=== PATIENT | male | born 1985 | race Caucasian/White ===

== ENCOUNTER 2016-09-14 12:52 | Inpatient (IN) | payer MEDICAID ==
--- NOTE | 2016-09-14 13:11 | ER Document Report ---
ED Medical Screen (RME) - General Stated Complaint: COUGH,CONGESTION,SHORTNESS OF BREATH Time seen by provider: 13:09 Mode of Arrival: Ambulatory Information source: Patient Notes: 31-year-old male presents to ED for shortness of breath and coughing with body aches and weight loss. He went to urgent care and they sent him to the emergency room for his low pulse ox of 91. In RME his pulse ox is 92 and his pulses 148. I have greeted and performed a rapid initial assessment of this patient. A comprehensive ED assessment and evaluation of the patient, analysis of test results and completion of medical decision making process will be conducted by an additional ED providers. - Related Data Allergies/Adverse Reactions: No Known Allergies Allergy (Unverified 09/14/16 13:09)
--- NOTE | 2016-09-14 13:51 | ER Document Report ---
ED Respiratory Problem - General Chief Complaint: Cough Stated Complaint: COUGH,CONGESTION,SHORTNESS OF BREATH Mode of Arrival: Ambulatory Information source: Patient TRAVEL OUTSIDE OF THE [place] IN LAST 30 DAYS: No - HPI Patient complains to provider of: Short of breath Onset: Other - 2 DAYS (ACUTE ILLNESS) Duration: Continuous Quality of pain: Other - SORENESS Severity: Moderate Context: Smoker. denies: Recent cardiac event, Recent foreign travel, Recent immobilization Chest pain/discomfort: Center Cough: Productive Sputum amount: Small Sputum color: [place]. denies: [place] tinged, Red (blood), [place] Sputum consistency: Mucoid Associated symptoms: Chills, Cough, Fever, Headache, Sweaty. denies: Bloody cough - Related Data Allergies/Adverse Reactions: No Known Allergies Allergy (Unverified 09/14/16 13:09) Home Medications: Current Home Medications No Home Medications 09/14/16 [History] Past Medical History - General Information source: Patient - Social History Smoking Status: Current Every Day Smoker Chew tobacco use (# tins/day): No Frequency of alcohol use: None Drug Abuse: None, Other - PREVIOUSLY USED MAIJUANA, NASAL COCAINE. DENIES I.V.DRUG ABUSE. Lives with: Family Family History: None Patient has suicidal ideation: No Patient has homicidal ideation: No - Past Medical History Cardiac Medical History: Reports: None Pulmonary Medical History: Reports: Hx Asthma EENT Medical History: Reports: None Neurological Medical History: Reports: None Endocrine Medical History: Reports: None Renal/ Medical History: Reports: None. Denies: Hx Peritoneal Dialysis Malignancy Medical History: Reports None GI Medical History: Reports: None Musculoskeltal Medical History: Reports None Psychiatric Medical History: Reports: None Past Surgical History: Reports: None Review of Systems - Review of Systems Constitutional: See HPI, Chills, Diaphoresis, Fever, Weight loss - 20% IN 5-6 MONTHS EENT: No symptoms reported Cardiovascular: No symptoms reported Respiratory: See HPI Gastrointestinal: No symptoms reported Genitourinary: No symptoms reported Musculoskeletal: See HPI Skin: No symptoms reported Neurological/Psychological: See HPI, Headaches Physical Exam - Vital signs Vitals: Temp Pulse Resp BP Pulse Ox 99.9 F 143 H 20 132/87 H 93 09/14/16 13:12 09/14/16 13:12 09/14/16 13:12 09/14/16 13:12 09/14/16 13:12 Interpretation: Tachycardic. No: Tachypneic, Febrile - General General appearance: Alert. No: Appears well - APPEARS CHRONICALLY ILL In distress: None - HEENT Head: Normocephalic Eyes: Normal Conjunctiva: Normal Ears: Normal Nasal: Normal Mouth/Lips: Normal Mucous membranes: Dry Pharynx: Normal Neck: Normal - Respiratory Respiratory status: Respiratory distress - SLIGHT Chest status: Nontender Breath sounds: Productive cough, Wheezing - MILD, ALL MCMANUS - Cardiovascular Rhythm: Regular, Tachycardia Heart sounds: Normal auscultation Murmur: No - Abdominal Inspection: Normal Distension: No distension Bowel sounds: Hypoactive - Back Back: Normal - Extremities General upper extremity: Normal inspection General lower extremity: Normal inspection - Neurological Neuro grossly intact: Yes Cognition: Normal Orientation: AAOx4 - Psychological Associated symptoms: Normal affect, Normal mood - Skin Skin Temperature: Warm Skin Moisture: Dry Skin Color: Normal Skin Turgor: Elastic Course - Vital Signs Vital signs: Temp Pulse Resp BP Pulse Ox 97.6 F 88 18 118/76 95 09/16/16 08:50 09/16/16 08:50 09/16/16 08:50 09/16/16 08:50 09/16/16 08:50 - Laboratory Result Diagrams: 09/16/16 03:40 09/16/16 03:40 Laboratory results interpreted by me: 09/14/16 09/14/16 09/14/16 13:41 13:41 13:41 WBC 18.4 H Seg Neutrophils % 82.7 H Lymphocytes % 8.1 L Absolute Neutrophils 15.2 H Absolute Monocytes 1.6 H Iron Total Bilirubin 2.7 H Alkaline Phosphatase 160 H C-Reactive Protein NT-Pro-B Natriuret Pep 335 H Total Protein 8.4 H Albumin 5.2 H Prealbumin TSH 09/14/16 09/14/16 09/14/16 13:41 13:41 13:41 WBC Seg Neutrophils % Lymphocytes % Absolute Neutrophils Absolute Monocytes Iron 23 L Total Bilirubin Alkaline Phosphatase C-Reactive Protein 242.8 H NT-Pro-B Natriuret Pep Total Protein Albumin Prealbumin 8.8 L TSH 09/14/16 13:41 WBC Seg Neutrophils % Lymphocytes % Absolute Neutrophils Absolute Monocytes Iron Total Bilirubin Alkaline Phosphatase C-Reactive Protein NT-Pro-B Natriuret Pep Total Protein Albumin Prealbumin TSH 0.42 L - Diagnostic Test Radiology reviewed: Image reviewed, Reports reviewed - EKG Interpretation by Me EKG shows normal: Sinus rhythm, [place], Intervals, QRS Complexes, ST-T Waves Rate: Tachycardia - Consults DR. ARGUELLES Time consulted: 15:40 Reason for consultation: 09/14/16 15:50 CONSIDER FOR ADMISSION Consulted provider: will come to ER Discharge - Discharge Clinical Impression: Abnormal liver function test, Abnormal weight loss, Acute respiratory failure with hypoxia Condition: Good Disposition: ADMITTED INPATIENT Admitting Provider: Hospitalist Unit Admitted: Telemetry
[2016-09-14 13:56] LABS: ABSOLUTE BASOPHILS # (AUTO) 0.1 10^3/uL (0.0-0.2); ABSOLUTE EOSINOPHILS # (AUTO) 0.1 10^3/uL (0.0-0.6); ABSOLUTE LYMPHOCYTES (AUTO) 1.5 10^3/uL (0.5-4.7); ABSOLUTE MONOCYTES (AUTO) 1.6 10^3/uL (0.1-1.4); ABSOLUTE NEUT (AUTO) 15.2 10^3/uL (1.7-8.2); BASOPHILS % (AUTO) 0.3 % (0-2); EOSINOPHILS % (AUTO) 0.4 % (0-6); HEMATOCRIT 48.4 % (37.9-51.0); HEMOGLOBIN 16.4 g/dL (13.5-17.0); HGB HCT DIFFERENCE 0.8; LYMPHOCYTES % (AUTO) 8.1 % (13-45); MEAN CORPUSCULAR HEMOGLOBIN 29.9 pg (27.0-33.4); MEAN CORPUSCULAR HGB CONC 33.8 g/dL (32.0-36.0); MEAN CORPUSCULAR VOLUME 88 fl (80-97); MONOCYTES % (AUTO) 8.5 % (3-13); RED BLOOD COUNT 5.47 10^6/uL (4.35-5.55); SEGMENTED NEUTROPHILS % (AUTO) 82.7 % (42-78); WHITE BLOOD COUNT 18.4 10^3/uL (4.0-10.5)
[2016-09-14] MEDS ORDERED: NORMAL SALINE 1000 ML 1,000 ML IV ONE ×2 (13:58→15:00)
[2016-09-14 14:19] LABS: ALANINE AMINOTRANSFERASE 28 U/L (21-72); ALBUMIN 5.2 g/dL (3.5-5.0); ALKALINE PHOSPHATASE 160 U/L (38-126); ANION GAP 15 (5-19); ASPARTATE AMINO TRANSFERASE 21 U/L (17-59); BILIRUBIN,TOTAL 2.7 mg/dL (0.2-1.3); BLOOD UREA NITROGEN 8 mg/dL (7-20); CALCIUM 10.2 mg/dL (8.4-10.2); CARBON DIOXIDE 28 mmol/L (22-30); CHLORIDE 99 mmol/L (98-107); CREATINE KINASE 56 U/L (55-170); CREATININE RESULT 0.66 mg/dL (0.52-1.25); GLUCOSE 101 mg/dL (75-110); LIPASE 45.8 U/L (23-300); POTASSIUM 4.2 mmol/L (3.6-5.0); SODIUM 141.9 mmol/L (137-145); TOTAL PROTEIN 8.4 g/dL (6.3-8.2)
[2016-09-14 14:30] LABS: CREATINE KINASE MB 0.33 ng/mL (<4.55)
[2016-09-14 14:33] LABS: TROPONIN I < 0.012 ng/mL
[2016-09-14] MEDS ORDERED: CEFTRIAXONE INJ 1000 MG VIAL IV ONE (15:10)
[2016-09-14] MEDS ORDERED: AZITHROMYCIN INJ 500 MG VIAL IV ONE (15:10)
[2016-09-14] MEDS ORDERED: IPRATROPIUM/ALBUTEROL 0.5-2.5 MG/3 ML AMPUL NEB ONE (15:33)
--- NOTE | 2016-09-14 16:46 | PDOC H&P ---
History of Present Illness Admission Date/PCP: RA NIETO Patient complains of: Cough and shortness of breath History of Present Illness: NINO GRAY is a 31 year old male presents with a one-week history of worsening cough with phlegm and turn from white to hamlin but no blood in it, wheezing, worsening shortness of breath, rapid weight loss of 50 pounds in last 6 months, and bed soaking night sweats, loose stools, sore throat, fevers and chills. He claims a 3 year history of cough productive of phlegm initially presented to his primary care provider in [facility] but was told cough was due to smoking only and he was quit further investigation was performed. He denies living in a alf, any incarcerations, travel overseas or known exposures to tuberculosis or any sick contacts. He denies swollen glands, difficulty urinating, abdominal pain. Denies STDs including HIV and hepatitis, denies IV drug use or recreational drug use, alcohol use. He admits to smoking only 5 cigarettes a day and never more than half a pack per day and has done so since his late teens. He reports strong family history of emphysema and all female members of his family notes they are also heavy smokers. Evaluation in the emergency department shows him to be 91% on room air with a heart rate of 130 chest x-ray showing a bilateral alveolar infiltrates consistent with pneumonia. He was given Rocephin and Zithromax and we were asked to admit for further evaluation and management. He has already received HIV screening was negative. Past Medical History Cardiac Medical History: Reports: None Pulmonary Medical History: Reports: Asthma EENT Medical History: Reports: None Neurological Medical History: Reports: None Endocrine Medical History: Reports: None Renal/ Medical History: Reports: None Malignancy Medical History: Reports: None GI Medical History: Reports: None Musculoskeltal Medical History: Reports: None Psychiatric Medical History: Reports: None, Depression Past Surgical History Past Surgical History: Reports: None Social History Information Source: Patient Lives with: Family Smoking Status: Current Every Day Smoker Frequency of Alcohol Use: None Hx Recreational Drug Use: No Hx Prescription Drug Abuse: No - Advance Directive Resuscitation Status: Full Code Family History Family History: COPD. denies: Malignancy, Thyroid Disfunction Parental Family History Reviewed: Yes Children Family History Reviewed: Yes Sibling(s) Family History Reviewed.: Yes Medication/Allergy Allergies/Adverse Reactions: No Known Allergies Allergy (Unverified 09/14/16 13:09) Review of Systems Constitutional: PRESENT: as per HPI. ABSENT: headache(s), weight gain Eyes: ABSENT: visual disturbances Ears: ABSENT: hearing changes Cardiovascular: PRESENT: dyspnea on exertion. ABSENT: chest pain, edema, orthropnea, palpitations Respiratory: PRESENT: as per HPI. ABSENT: hemoptysis Gastrointestinal: ABSENT: abdominal pain, constipation, hematemesis, hematochezia, nausea, vomiting Genitourinary: ABSENT: dysuria, hematuria Musculoskeletal: ABSENT: joint swelling Integumentary: ABSENT: rash, wounds Neurological: ABSENT: abnormal gait, abnormal speech, confusion, dizziness, focal weakness, syncope Psychiatric: ABSENT: anxiety, depression Endocrine: ABSENT: cold intolerance, heat intolerance, polydipsia, polyuria Hematologic/Lymphatic: ABSENT: easy bleeding, easy bruising Physical Exam Vital Signs: Temp Pulse Resp BP Pulse Ox 99.9 F 143 H 28 H 130/89 H 94 09/14/16 14:38 09/14/16 13:12 09/14/16 15:01 09/14/16 15:00 09/14/16 15:01 Intake & Output 09/13/16 09/14/16 09/15/16 06:59 06:59 06:59 Weight 49.895 kg PHYSICAL EXAM GENERAL: NAD; well developed, thin; alert and oriented to person, place, time, situation HEENT: normocephalic, atraumatic; EOMI, PERRLA, no conjunctival injection, no scleral icterus; oral mucosa dry with a thin white coating on the tongue, normal dentition; neck supple, no LAD, normal ROM RESPIRATORY: no accessory muscle use, no increased WOB, good air entry bilaterally; no wheezes, but diffuse rales, rhonchi and inspiratory crackles CARDIO: no JVD; RRR; no systolic murmur; tachycardia VASCULAR: no carotid bruit; no abdominal bruit; no pallor; 2+ radial, DP pulse ; normal capillary refill GI: soft; nondistended; normal bowel sounds; no hepato but possibly splenomegaly; no rebound, rigidity, guarding : normal external genitalia; rectal deferred NEURO: normal patella reflexes; normal sensation; normal motor function; no gait abnls; no dysarthria; no nystagmus; tongue protrudes midline; normal finger to nose; MSK: 5/5 strength; normal ROM hips; ambulatory without assistance; no tenderness EXTREMITIES: no calf tender; no palpable cords in calf; no clubbing, cyanosis , pedal edema PSYCH: normal affect, normal mood SKIN: warm; moist; no petechiae; no telengectasias; no jaundice; no rash; multiple tattoos LAD: Multiple pea-sized lymph nodes palpable in the right greater than left axilla and bilateral groin, all are mobile and nontender Results Laboratory Results: 09/14/16 13:41 09/14/16 13:41 09/14/16 09/14/16 13:41 13:41 WBC 18.4 H RBC 5.47 Hgb 16.4 Hct 48.4 MCV 88 MCH 29.9 MCHC 33.8 RDW 13.0 Plt Count 271 Seg Neutrophils % 82.7 H Lymphocytes % 8.1 L Monocytes % 8.5 Eosinophils % 0.4 Basophils % 0.3 Absolute Neutrophils 15.2 H Absolute Lymphocytes 1.5 Absolute Monocytes 1.6 H Absolute Eosinophils 0.1 Absolute Basophils 0.1 Sodium 141.9 Potassium 4.2 Chloride 99 Carbon Dioxide 28 Anion Gap 15 BUN 8 Creatinine 0.66 Est GFR ( Amer) > 60 Est GFR (Non-Af Amer) > 60 Glucose 101 Calcium 10.2 Total Bilirubin 2.7 H AST 21 ALT 28 Alkaline Phosphatase 160 H Total Protein 8.4 H Albumin 5.2 H Lipase 45.8 09/14/16 09/14/16 13:41 13:41 Creatine Kinase 56 CK-MB (CK-2) 0.33 Troponin I < 0.012 Impressions: Chest X-Ray 09/14/16 13:12 IMPRESSION: Bilateral perihilar airspace disease as described. Assessment & Plan - Diagnosis (1) Pneumonia Qualifiers: Pneumonia type: due to unspecified organism Laterality: bilateral Lung location: unspecified part of lung Qualified Code(s): J18.9 - Pneumonia, unspecified organism Is this a current diagnosis for this admission?: YesPlan: Admit to telemetry and continue empiric Rocephin and Zithromax started in the emergency department. However his presentation is concerning for tuberculosis given the adenopathy, abnormal weight loss, night sweats. Therefore he will need to be in respiratory isolation, place PPD and collect sputum for AFB testing 3 mornings. Send sputum for culture and sensitivity. Follow up on blood culture sent from the emergency department to hopefully narrow our antibiotic spectrum. Supplemental O2, nebulizer therapy, flutter valve and incentive spirometer. Check mycoplasma antibodies. (2) Acute respiratory failure with hypoxia Is this a current diagnosis for this admission?: YesPlan: Mild and likely secondary to the above. However given his family history and chest x-ray findings will get CT of the chest and check an alpha-1 antitrypsin level. (3) Sepsis Qualifiers: Sepsis type: sepsis due to unspecified organism Qualified Code(s): A41.9 - Sepsis, unspecified organism Is this a current diagnosis for this admission?: YesPlan: IV fluids and antibiotics and supportive care. (4) Abnormal liver function test Is this a current diagnosis for this admission?: YesPlan: Unclear etiology. As above. We'll also screen for hepatitis A, B, and C and EBV, inflammatory disease, autoimmune disease. (5) Abnormal weight loss Is this a current diagnosis for this admission?: YesPlan: As above. Will also screen for hyperthyroidism, immune deficiency, B12, iron, ferritin, pre-albumin (6) Adenopathy Is this a current diagnosis for this admission?: YesPlan: Unclear etiology. As above. Will check CT of the abdomen and pelvis due to the abnormal weight loss and the adenopathy found. (7) Oral thrush Is this a current diagnosis for this admission?: YesPlan: Start topical care with nystatin swish and swallow. Potentially further evidence of immunodeficiency or atypical infectious etiology. - Time Time Spent: Greater than 70 Minutes - Inpatient Certification Medical Necessity: Need For IV Fluids, Need For Continuous Telemetry Monitoring , Need for Nebulizer Therapy and Monitoring of Response, Need for IV Antibiotics
[2016-09-14] MEDS ORDERED: ENOXAPARIN SODIUM INJ 40 MG/0.4 ML DISP.SYRIN SUBCUT ONE (17:00)
[2016-09-14 17:24] LABS: APPEARANCE,URINE CLEAR; BILIRUBIN,URINE NEGATIVE (NEGATIVE); GLUCOSE, URINE NEGATIVE (NEGATIVE); KETONES,URINE TRACE mg/dL (NEGATIVE); LEUKOCYTE ESTERASE,URINE NEGATIVE (NEGATIVE); NITRITE,URINE NEGATIVE (NEGATIVE); PROTEIN,URINE NEGATIVE (NEGATIVE)
[2016-09-14] MEDS ORDERED: TUBERCULIN,PURIF.PROT.DERIV. 5 TU/0.1 ML TEST 1 ML VIAL ID ONE (18:00)
[2016-09-14 18:17] LABS: URINE BARBITURATES SCREEN NEGATIVE; URINE METHADONE SCREEN NEGATIVE; URINE OPIATES LOW NEGATIVE; URINE PHENCYCLIDINE SCREEN NEGATIVE
[2016-09-14] MEDS: NORMAL SALINE 1000 ML 1,000 ML IV PRN (18:30)
[2016-09-14 19:34] LABS: FOLATE 9.66 ng/mL (>2.76)
--- NOTE | 2016-09-14 19:59 | EKG REPORT ---
SEVERITY:- OTHERWISE NORMAL ECG - SINUS TACHYCARDIA : Confirmed by: Jazmyne Quijano MD 14-Sep-2016 19:58:37
[2016-09-14] MEDS: ACETAMINOPHEN 325 MG TABLET PO PRN (21:50)
[2016-09-14] MEDS: IPRATROPIUM/ALBUTEROL 0.5-2.5 MG/3 ML AMPUL NEB PRN (21:50)
[2016-09-14] MEDS: FAMOTIDINE 20 MG TABLET PO SCH (21:50)
[2016-09-14] MEDS ORDERED: INFLUENZA ADLT QUAD (36MOS+) 2016-17 VAC 0.5 ML SYR IM PRN (23:14)
[2016-09-14] MEDS: NYSTATIN/DEXAMETH/DIPHEN SUSP 120 ML PO SCH (23:43)
[2016-09-15 04:41] LABS: ABSOLUTE BASOPHILS # (AUTO) 0.1 10^3/uL (0.0-0.2); ABSOLUTE EOSINOPHILS # (AUTO) 0.2 10^3/uL (0.0-0.6); ABSOLUTE MONOCYTES (AUTO) 1.5 10^3/uL (0.1-1.4); ABSOLUTE NEUT (AUTO) 10.3 10^3/uL (1.7-8.2); BASOPHILS % (AUTO) 0.5 % (0-2); EOSINOPHILS % (AUTO) 1.4 % (0-6); HEMATOCRIT 39.2 % (37.9-51.0); HGB HCT DIFFERENCE 0.4; LYMPHOCYTES % (AUTO) 14.3 % (13-45); MEAN CORPUSCULAR HEMOGLOBIN 29.8 pg (27.0-33.4); MEAN CORPUSCULAR HGB CONC 33.8 g/dL (32.0-36.0); MEAN CORPUSCULAR VOLUME 88 fl (80-97); MONOCYTES % (AUTO) 10.8 % (3-13); RED BLOOD COUNT 4.45 10^6/uL (4.35-5.55); RED CELL DISTRIBUTION WIDTH 12.8 % (11.5-14.0); WHITE BLOOD COUNT 14.1 10^3/uL (4.0-10.5)
[2016-09-15 04:49] LABS: HEMOGLOBIN 13.2 g/dL (13.5-17.0)
[2016-09-15] MEDS: NORMAL SALINE 1000 ML 1,000 ML IV PRN (06:03)
[2016-09-15] MEDS ORDERED: ENOXAPARIN SODIUM INJ 40 MG/0.4 ML DISP.SYRIN SUBCUT SCH (08:00)
[2016-09-15] MEDS: FAMOTIDINE 20 MG TABLET PO SCH ×2 (10:04→21:11)
[2016-09-15] MEDS: CEFTRIAXONE 1 GM/D5W RTU 50 ML IV SCH (10:04)
[2016-09-15] MEDS: AZITHROMYCIN 500 MG in DEXTROSE 5%-WATER 250 ML IV SCH (10:05)
[2016-09-15] MEDS: NYSTATIN/DEXAMETH/DIPHEN SUSP 120 ML PO SCH ×4 (10:06→21:12)
[2016-09-15] MEDS: ENOXAPARIN SODIUM INJ 40 MG/0.4 ML DISP.SYRIN SUBCUT SCH (10:07)
--- NOTE | 2016-09-15 11:14 | PDOC PROGRESS REPORT ---
Subjective Progress Note for:: 09/15/16 Subjective:: NINO GRAY is a 31 year old male presents with a one-week history of worsening cough with phlegm and turn from white to hamlin but no blood in it, wheezing, worsening shortness of breath, rapid weight loss of 50 pounds in last 6 months, and bed soaking night sweats, loose stools, sore throat, fevers and chills. He claims a 3 year history of cough productive of phlegm initially presented to his primary care provider in [facility] but was told cough was due to smoking only and he was quit further investigation was performed. He denies living in a intermediate, any incarcerations, travel overseas or known exposures to tuberculosis or any sick contacts. He denies swollen glands, difficulty urinating, abdominal pain. Denies STDs including HIV and hepatitis, denies IV drug use or recreational drug use, alcohol use. He admits to smoking only 5 cigarettes a day and never more than half a pack per day and has done so since his late teens. He reports strong family history of emphysema and all female members of his family notes they are also heavy smokers. Evaluation in the emergency department shows him to be 91% on room air with a heart rate of 130 chest x-ray showing a bilateral alveolar infiltrates consistent with pneumonia. He was given Rocephin and Zithromax and we were asked to admit for further evaluation and management. He was continued on Rocephin and Zithromax and has shown improvement overnight with resolution of wheezing. PPD was placed last night. One sputum for AFB has been collected however his cough is much less productive this morning became a second sample difficult to collect. He denies chest pain, palpitations , fever, chills, muscle aches and pains, night sweats. ROS: per HPI plus a total of 10 systems reviewed, pertinent positives and negatives noted above, remaining systems negative. Physical Exam Vital Signs: Temp Pulse Resp BP Pulse Ox 97.4 F 113 H 20 105/64 98 09/15/16 07:17 09/15/16 07:34 09/15/16 07:34 09/15/16 07:17 09/15/16 07:34 Pulse Oximeter Continuous Start: 09/14/16 16: 17 Freq: RTQ4 Status: Active Document 09/15/16 07:34 LDA (Rec: 09/15/16 07:35 LDA [email or web address]) Pulse Oximetry Assessment Oxygen Saturation (92-100) 98 Oxygen Flow Rate (L/min) 3 Oxygen Delivery Method Nasal Cannula Equipment Usage Equipment in Use Continuous SpO2 Machine # [id number] Intake & Output 09/14/16 09/15/16 09/16/16 06:59 06:59 06:59 Intake Total 1371 Output Total 400 Balance 971 Weight 51.2 kg EXAM GENERAL: NAD; well developed, poorly nourished; no obese; alert and oriented to person, place, time, situation HEENT: normocephalic, atraumatic; no conjunctival injection, no scleral icterus ; oral mucosa thin white coat on tongue; RESPIRATORY: no accessory muscle use, no increased WOB, good air entry bilaterally; no wheezes, rales, rhonchi; diffuse inspiratory crackles CARDIO: no JVD; RRR; no systolic murmur; no tachycardia GI: soft; nondistended; normal bowel sounds; no hepato spleno megaly; no rebound, rigidity, guarding VASCULAR: no carotid bruit; no abdominal bruit; no pallor; 2+ radial, DP pulse ; normal capillary refill EXTREMITIES: no calf tender; no palpable cords in calf; no clubbing, cyanosis , pedal edema PSYCH: normal affect, normal mood SKIN: warm; moist; no petechiae; no telengectasias; no jaundice; no rash; multiple tattoos LAD: Multiple pea-sized lymph nodes palpable in the right greater than left axilla and bilateral groin, all are mobile and nontender Results Laboratory Results: 09/15/16 03:55 09/14/16 09/15/16 16:30 03:55 WBC 14.1 H RBC 4.45 Hgb 13.2 L D Hct 39.2 MCV 88 MCH 29.8 MCHC 33.8 RDW 12.8 Plt Count 219 Seg Neutrophils % 73.0 Lymphocytes % 14.3 Monocytes % 10.8 Eosinophils % 1.4 Basophils % 0.5 Absolute Neutrophils 10.3 H Absolute Lymphocytes 2.0 Absolute Monocytes 1.5 H Absolute Eosinophils 0.2 Absolute Basophils 0.1 Urine Color YELLOW Urine Appearance CLEAR Urine pH 6.0 Ur Specific [place] 1.010 Urine Protein NEGATIVE Urine Glucose (UA) NEGATIVE Urine Ketones TRACE H Urine Blood NEGATIVE Urine Nitrite NEGATIVE Ur Leukocyte Esterase NEGATIVE Urine WBC (Auto) 1 Urine RBC (Auto) 0 Impressions: Abdomen/Pelvis CT 09/14/16 00:00 IMPRESSION: DIFFUSE BRONCHIECTASIS WITH MILD UPPER LOBE PARASEPTAL EMPHYSEMA. THERE IS A BROAD DIFFERENTIAL INCLUDING ALPHA 1 ANTITRYPSIN DEFICIENCY, ADULT ONSET CYSTIC FIBROSIS, ALLERGIC BRONCHOPULMONARY ASPERGILLOSIS, CHRONIC INFECTION/ INFLAMMATION INCLUDING ASTHMA, AND MIXED CONGESTION ACTIVE TISSUE DISORDERS. CORRELATE WITH PATIENT'S MEDICAL HISTORY. MILD SCATTERED TREE-IN-BUD OPACITIES SUGGESTIVE OF SUPERIMPOSED INFECTIOUS OR INFLAMMATORY PNEUMONITIS. NORMAL CT OF THE ABDOMEN AND PELVIS WITH ORAL AND INTRAVENOUS CONTRAST. Chest CT 09/14/16 00:00 IMPRESSION: DIFFUSE BRONCHIECTASIS WITH MILD UPPER LOBE PARASEPTAL EMPHYSEMA. THERE IS A BROAD DIFFERENTIAL INCLUDING ALPHA 1 ANTITRYPSIN DEFICIENCY, ADULT ONSET CYSTIC FIBROSIS, ALLERGIC BRONCHOPULMONARY ASPERGILLOSIS, CHRONIC INFECTION/ INFLAMMATION INCLUDING ASTHMA, AND MIXED CONGESTION ACTIVE TISSUE DISORDERS. CORRELATE WITH PATIENT'S MEDICAL HISTORY. MILD SCATTERED TREE-IN-BUD OPACITIES SUGGESTIVE OF SUPERIMPOSED INFECTIOUS OR INFLAMMATORY PNEUMONITIS. NORMAL CT OF THE ABDOMEN AND PELVIS WITH ORAL AND INTRAVENOUS CONTRAST. Chest X-Ray 09/14/16 13:12 IMPRESSION: Bilateral perihilar airspace disease as described. Assessment & Plan - Diagnosis (1) Pneumonia Qualifiers: Pneumonia type: due to unspecified organism Laterality: bilateral Lung location: unspecified part of lung Qualified Code(s): J18.9 - Pneumonia, unspecified organism Is this a current diagnosis for this admission?: YesPlan: Admitted to telemetry, continue empiric Rocephin and Zithromax. Improved. However his presentation is concerning for tuberculosis given the adenopathy, abnormal weight loss, night sweats. Therefore he will need to be in respiratory isolation, place PPD and collect sputum for AFB testing 3 mornings. Send sputum for culture and sensitivity. Follow up on blood culture sent from the emergency department to hopefully narrow our antibiotic spectrum. Supplemental O2, nebulizer therapy, flutter valve and incentive spirometer. Follow-up mycoplasma antibodies. (2) Acute respiratory failure with hypoxia Is this a current diagnosis for this admission?: YesPlan: Improved, Mild and likely secondary to the above. However given his family history and chest x-ray findings, CT of the chest performed and shows extensive apical emphysema and diffuse inflammatory changes and alveolar infiltrates consistent with pneumonia. Follow-up Alpha-1 antitrypsin level. (3) Sepsis Qualifiers: Sepsis type: sepsis due to unspecified organism Qualified Code(s): A41.9 - Sepsis, unspecified organism Is this a current diagnosis for this admission?: YesPlan: Improved. IV fluids and antibiotics and supportive care. (4) Abnormal liver function test Is this a current diagnosis for this admission?: YesPlan: Unclear etiology. As above. Pending screen for hepatitis A, B, and C and EBV, inflammatory disease, autoimmune disease. (5) Abnormal weight loss Is this a current diagnosis for this admission?: YesPlan: As above. His TSH is low so Will also screen for hyperthyroidism. Check for immune deficiency; B12, iron, ferritin all unremarkable. Pre-albumin very low. (6) Adenopathy Is this a current diagnosis for this admission?: YesPlan: Unclear etiology. As above. CT of the abdomen and pelvis due to the abnormal weight loss and the adenopathy was unrevealing. (7) Oral thrush Is this a current diagnosis for this admission?: YesPlan: Start topical care with nystatin swish and swallow. Potentially further evidence of immunodeficiency or atypical infectious etiology. - Time Time Spent with patient: 25-34 minutes - Plan Summary Plan Summary: Repeat PPD tomorrow evening, follow-up on AFB smears. Continue respiratory isolation until the results of this test available.
[2016-09-15] MEDS ORDERED: SODIUM CHLORIDE NASAL SPRAY 44 ML ONE (18:15)
[2016-09-15] MEDS: SODIUM CHLORIDE NASAL SPRAY 44 ML NASL SCH (21:12)
[2016-09-16] MEDS: ACETAMINOPHEN 325 MG TABLET PO PRN (00:37)
[2016-09-16 04:57] LABS: ABSOLUTE BASOPHILS # (AUTO) 0.1 10^3/uL (0.0-0.2); ABSOLUTE EOSINOPHILS # (AUTO) 0.2 10^3/uL (0.0-0.6); ABSOLUTE MONOCYTES (AUTO) 1.2 10^3/uL (0.1-1.4); ABSOLUTE NEUT (AUTO) 8.6 10^3/uL (1.7-8.2); BASOPHILS % (AUTO) 0.5 % (0-2); EOSINOPHILS % (AUTO) 1.6 % (0-6); HEMATOCRIT 38.8 % (37.9-51.0); HEMOGLOBIN 13.1 g/dL (13.5-17.0); HGB HCT DIFFERENCE 0.5; LYMPHOCYTES % (AUTO) 16.7 % (13-45); MEAN CORPUSCULAR HGB CONC 33.8 g/dL (32.0-36.0); MEAN CORPUSCULAR VOLUME 89 fl (80-97); RED BLOOD COUNT 4.37 10^6/uL (4.35-5.55); RED CELL DISTRIBUTION WIDTH 12.8 % (11.5-14.0); SEGMENTED NEUTROPHILS % (AUTO) 71.2 % (42-78); WHITE BLOOD COUNT 12.1 10^3/uL (4.0-10.5)
[2016-09-16 05:29] LABS: ALANINE AMINOTRANSFERASE 27 U/L (21-72); ALBUMIN 3.6 g/dL (3.5-5.0); ALKALINE PHOSPHATASE 119 U/L (38-126); ANION GAP 10 (5-19); ASPARTATE AMINO TRANSFERASE 12 U/L (17-59); BLOOD UREA NITROGEN 5 mg/dL (7-20); CALCIUM 8.6 mg/dL (8.4-10.2); CARBON DIOXIDE 29 mmol/L (22-30); CHLORIDE 103 mmol/L (98-107); CREATININE RESULT 0.58 mg/dL (0.52-1.25); GLUCOSE 86 mg/dL (75-110); POTASSIUM 3.9 mmol/L (3.6-5.0); TOTAL PROTEIN 6.2 g/dL (6.3-8.2)
[2016-09-16 05:33] LABS: FREE T3 4.03 pg/mL (2.77-5.27)
[2016-09-16] MEDS: CEFTRIAXONE 1 GM/D5W RTU 50 ML IV SCH (09:00)
[2016-09-16] MEDS: FAMOTIDINE 20 MG TABLET PO SCH ×2 (09:00→22:38)
[2016-09-16] MEDS: NYSTATIN/DEXAMETH/DIPHEN SUSP 120 ML PO SCH ×4 (09:00→22:39)
[2016-09-16] MEDS: SODIUM CHLORIDE NASAL SPRAY 44 ML NASL SCH ×4 (09:00→22:38)
[2016-09-16] MEDS ORDERED: HYDROCODONE BIT/HOMATROPINE SYRUP 5 ML UDCUP PO PRN (09:04)
--- NOTE | 2016-09-16 10:17 | PDOC PROGRESS REPORT ---
Subjective Progress Note for:: 09/16/16 Subjective:: NINO GRAY is a 31 year old male presents with a one-week history of worsening cough with phlegm and turn from white to hamlin but no blood in it, wheezing, worsening shortness of breath, rapid weight loss of 50 pounds in last 6 months, and bed soaking night sweats, loose stools, sore throat, fevers and chills. He claims a 3 year history of cough productive of phlegm initially presented to his primary care provider in [facility] but was told cough was due to smoking only and he was quit further investigation was performed. He denies living in a nursing home, any incarcerations, travel overseas or known exposures to tuberculosis or any sick contacts. He denies swollen glands, difficulty urinating, abdominal pain. Denies STDs including HIV and hepatitis, denies IV drug use or recreational drug use, alcohol use. He admits to smoking only 5 cigarettes a day and never more than half a pack per day and has done so since his late teens. He reports strong family history of emphysema and many female members of his family notes they are also heavy smokers. Evaluation in the emergency department shows him to be 91% on room air with a heart rate of 130 chest x-ray showing a bilateral alveolar infiltrates consistent with pneumonia. He was given Rocephin and Zithromax and we were asked to admit for further evaluation and management. He was continued on Rocephin and Zithromax and has shown improvement with resolution of wheezing. PPD was placed evening of 09/14/2016. 3 sputum for AFB has been collected , first is negative for AFB. his cough is much less productive but much more paroxysmal and irritating. He denies chest pain, palpitations, fever, chills, muscle aches and pains, night sweats. ROS: per HPI plus a total of 10 systems reviewed, pertinent positives and negatives noted above, remaining systems negative. Physical Exam Vital Signs: Temp Pulse Resp BP Pulse Ox 97.6 F 88 18 118/76 95 09/16/16 08:50 09/16/16 08:50 09/16/16 08:50 09/16/16 08:50 09/16/16 08:50 Pulse Oximeter Continuous Start: 09/14/16 16: 17 Freq: RTQ4 Status: Active Document 09/16/16 08:00 [facility] (Rec: 09/16/16 08:55 [facility] [email or web address]) Pulse Oximetry Assessment Oxygen Saturation (92-100) 96 Oxygen Flow Rate (L/min) 3 Oxygen Delivery Method Nasal Cannula Equipment Usage Equipment in Use Continuous SpO2 Machine # [id number] Intake & Output 09/15/16 09/16/16 09/17/16 06:59 06:59 06:59 Intake Total 1371 3229 Output Total 400 1700 Balance 971 1529 Weight 51.2 kg 51.2 kg EXAM GENERAL: NAD; well developed, poorly nourished; no obese; alert and oriented to person, place, time, situation HEENT: normocephalic, atraumatic; no conjunctival injection, no scleral icterus ; oral mucosa thin white coat on tongue resolved; RESPIRATORY: no accessory muscle use, no increased WOB, good air entry bilaterally; no wheezes, rales, rhonchi; bilateral inspiratory crackles at the bases CARDIO: no JVD; RRR; no systolic murmur; no tachycardia GI: soft; nondistended; normal bowel sounds; no hepato spleno megaly; no rebound, rigidity, guarding VASCULAR: no carotid bruit; no abdominal bruit; no pallor; 2+ radial, DP pulse ; normal capillary refill EXTREMITIES: no calf tender; no palpable cords in calf; no clubbing, cyanosis , pedal edema PSYCH: normal affect, normal mood SKIN: warm; moist; no petechiae; no telengectasias; no jaundice; no rash; multiple tattoos LAD: Multiple pea-sized lymph nodes palpable in the right greater than left axilla and bilateral groin, all are mobile and nontender Results Laboratory Results: 09/16/16 03:40 09/16/16 03:40 09/16/16 09/16/16 09/16/16 03:40 03:40 03:40 WBC 12.1 H RBC 4.37 Hgb 13.1 L Hct 38.8 MCV 89 MCH 30.0 MCHC 33.8 RDW 12.8 Plt Count 200 Seg Neutrophils % 71.2 Lymphocytes % 16.7 Monocytes % 10.0 Eosinophils % 1.6 Basophils % 0.5 Absolute Neutrophils 8.6 H Absolute Lymphocytes 2.0 Absolute Monocytes 1.2 Absolute Eosinophils 0.2 Absolute Basophils 0.1 Sodium 142.0 Potassium 3.9 Chloride 103 Carbon Dioxide 29 Anion Gap 10 BUN 5 L Creatinine 0.58 Est GFR ( Amer) > 60 Est GFR (Non-Af Amer) > 60 Glucose 86 Calcium 8.6 Total Bilirubin 1.0 AST 12 L ALT 27 Alkaline Phosphatase 119 C-Reactive Protein 186.0 H Total Protein 6.2 L Albumin 3.6 Free T4 1.20 Free T3 pg/mL 4.03 Impressions: Abdomen/Pelvis CT 09/14/16 00:00 IMPRESSION: DIFFUSE BRONCHIECTASIS WITH MILD UPPER LOBE PARASEPTAL EMPHYSEMA. THERE IS A BROAD DIFFERENTIAL INCLUDING ALPHA 1 ANTITRYPSIN DEFICIENCY, ADULT ONSET CYSTIC FIBROSIS, ALLERGIC BRONCHOPULMONARY ASPERGILLOSIS, CHRONIC INFECTION/ INFLAMMATION INCLUDING ASTHMA, AND MIXED CONGESTION ACTIVE TISSUE DISORDERS. CORRELATE WITH PATIENT'S MEDICAL HISTORY. MILD SCATTERED TREE-IN-BUD OPACITIES SUGGESTIVE OF SUPERIMPOSED INFECTIOUS OR INFLAMMATORY PNEUMONITIS. NORMAL CT OF THE ABDOMEN AND PELVIS WITH ORAL AND INTRAVENOUS CONTRAST. Chest CT 09/14/16 00:00 IMPRESSION: DIFFUSE BRONCHIECTASIS WITH MILD UPPER LOBE PARASEPTAL EMPHYSEMA. THERE IS A BROAD DIFFERENTIAL INCLUDING ALPHA 1 ANTITRYPSIN DEFICIENCY, ADULT ONSET CYSTIC FIBROSIS, ALLERGIC BRONCHOPULMONARY ASPERGILLOSIS, CHRONIC INFECTION/ INFLAMMATION INCLUDING ASTHMA, AND MIXED CONGESTION ACTIVE TISSUE DISORDERS. CORRELATE WITH PATIENT'S MEDICAL HISTORY. MILD SCATTERED TREE-IN-BUD OPACITIES SUGGESTIVE OF SUPERIMPOSED INFECTIOUS OR INFLAMMATORY PNEUMONITIS. NORMAL CT OF THE ABDOMEN AND PELVIS WITH ORAL AND INTRAVENOUS CONTRAST. Chest X-Ray 09/14/16 13:12 IMPRESSION: Bilateral perihilar airspace disease as described. Assessment & Plan - Diagnosis (1) Pneumonia Qualifiers: Pneumonia type: due to unspecified organism Laterality: bilateral Lung location: unspecified part of lung Qualified Code(s): J18.9 - Pneumonia, unspecified organism Is this a current diagnosis for this admission?: YesPlan: Admitted to telemetry, continue empiric Rocephin and Zithromax. Improved. His presentation is concerning for tuberculosis given the adenopathy, abnormal weight loss, night sweats. Therefore he will need to be in respiratory isolation, placed PPD and collect sputum for AFB testing 3 mornings. Send sputum for culture and sensitivity. Follow up on blood culture sent from the emergency department to hopefully narrow our antibiotic spectrum. Supplemental O2, nebulizer therapy, flutter valve and incentive spirometer. Follow-up mycoplasma antibodies. (2) Acute respiratory failure with hypoxia Is this a current diagnosis for this admission?: YesPlan: Improved now greater than or equal to 93% on room air. Mild and likely secondary to the above. However given his family history and chest x-ray findings, CT of the chest performed and shows extensive apical emphysema and diffuse inflammatory changes and alveolar infiltrates consistent with pneumonia. Follow-up Alpha-1 antitrypsin level. (3) Sepsis Qualifiers: Sepsis type: sepsis due to unspecified organism Qualified Code(s): A41.9 - Sepsis, unspecified organism Is this a current diagnosis for this admission?: YesPlan: Resolved. IV fluids and antibiotics and supportive care. (4) Abnormal liver function test Is this a current diagnosis for this admission?: YesPlan: Unclear etiology, improved. As above. Pending screen for hepatitis A, B, and C and EBV, inflammatory disease, autoimmune disease. (5) Abnormal weight loss Is this a current diagnosis for this admission?: YesPlan: As above. His TSH is low but his T3 and T4 are normal. Check for immune deficiency; B12, iron, ferritin all unremarkable. Pre-albumin very low. (6) Adenopathy Is this a current diagnosis for this admission?: YesPlan: Unclear etiology. As above. CT of the abdomen and pelvis due to the abnormal weight loss and the adenopathy was unrevealing. (7) Oral thrush Is this a current diagnosis for this admission?: YesPlan: Improved with topical care with nystatin swish and swallow. Potentially further evidence of immunodeficiency or atypical infectious etiology. - Time Time Spent with patient: 25-34 minutes - Plan Summary Plan Summary: At this point we are hostage to his AFB smears. His PPD can be read this evening. Continue current level of care as he is gradually improving.
[2016-09-16] MEDS: NORMAL SALINE 1000 ML 1,000 ML IV PRN (11:38)
[2016-09-16] MEDS: AZITHROMYCIN 500 MG in DEXTROSE 5%-WATER 250 ML IV SCH (11:39)
[2016-09-16] MEDS: ENOXAPARIN SODIUM INJ 40 MG/0.4 ML DISP.SYRIN SUBCUT SCH (12:08)
[2016-09-16 16:18] LABS: EPSTEIN BARR EARLY AG IGG AB <9.0 U/mL (0.0-8.9)
[2016-09-16] MEDS: HYDROCODONE BIT/HOMATROPINE 5-1.5 MG TABLET PO PRN ×2 (16:47→22:36)
[2016-09-16 17:36] LABS: IMMUNOGLOBULIN A 207 mg/dL (90-386); IMMUNOGLOBULIN G 693 mg/dL (700-1600); IMMUNOGLOBULIN M 91 mg/dL (20-172)
[2016-09-17 04:52] LABS: ABSOLUTE BASOPHILS # (AUTO) 0.1 10^3/uL (0.0-0.2); ABSOLUTE EOSINOPHILS # (AUTO) 0.3 10^3/uL (0.0-0.6); ABSOLUTE LYMPHOCYTES (AUTO) 2.2 10^3/uL (0.5-4.7); ABSOLUTE MONOCYTES (AUTO) 0.9 10^3/uL (0.1-1.4); BASOPHILS % (AUTO) 0.9 % (0-2); EOSINOPHILS % (AUTO) 3.5 % (0-6); HEMATOCRIT 36.8 % (37.9-51.0); HEMOGLOBIN 12.4 g/dL (13.5-17.0); HGB HCT DIFFERENCE 0.4; LYMPHOCYTES % (AUTO) 29.6 % (13-45); MEAN CORPUSCULAR HGB CONC 33.8 g/dL (32.0-36.0); MEAN CORPUSCULAR VOLUME 89 fl (80-97); MONOCYTES % (AUTO) 11.8 % (3-13); RED BLOOD COUNT 4.14 10^6/uL (4.35-5.55); RED CELL DISTRIBUTION WIDTH 12.9 % (11.5-14.0); SEGMENTED NEUTROPHILS % (AUTO) 54.2 % (42-78); WHITE BLOOD COUNT 7.4 10^3/uL (4.0-10.5)
[2016-09-17 07:25] LABS: IMMUNOGLOBULIN E 1255 IU/mL (0-100)
[2016-09-17] MEDS: ENOXAPARIN SODIUM INJ 40 MG/0.4 ML DISP.SYRIN SUBCUT SCH (09:00)
[2016-09-17] MEDS: SODIUM CHLORIDE NASAL SPRAY 44 ML NASL SCH ×2 (09:00→11:09)
[2016-09-17] MEDS: CEFTRIAXONE 1 GM/D5W RTU 50 ML IV SCH (09:11)
[2016-09-17] MEDS: AZITHROMYCIN 500 MG in DEXTROSE 5%-WATER 250 ML IV SCH (09:12)
[2016-09-17] MEDS: FAMOTIDINE 20 MG TABLET PO SCH (09:12)
[2016-09-17] MEDS: NYSTATIN/DEXAMETH/DIPHEN SUSP 120 ML PO SCH ×2 (09:15→13:44)
[2016-09-17] MEDS: IPRATROPIUM/ALBUTEROL 0.5-2.5 MG/3 ML AMPUL NEB PRN (10:16)
[2016-09-17 13:55] VITALS: BP 118/67
[2016-09-17 15:37] LABS: JO-1 ANTIBODY <0.2 AI (0.0-0.9)
--- NOTE | 2016-09-17 16:40 | PDOC DISCHARGE SUMMARY ---
General - Admit/Disc Date/PCP Admission Date/Primary Care Provider: 09/14/16 16:15 RA NIETO Discharge Date: 09/17/16 - Discharge Diagnosis (1) Pneumonia Is this a current diagnosis for this admission?: YesSummary: Secondary to Moraxella catarrhalis. Continue 2 weeks of Zithromax 500 mg daily[address] Follow with [address] Ortiz for further recommendations. (2) Acute respiratory failure with hypoxia Is this a current diagnosis for this admission?: YesSummary: Secondary to the above, complicated by at least moderate COPD. Resolved. (3) Sepsis Is this a current diagnosis for this admission?: YesSummary: Resolved (4) Abnormal liver function test Is this a current diagnosis for this admission?: YesSummary: Resolved. Unclear etiology, however he has EBV titers imply a recent reactivation mononucleosis possibly contributing to many of his presenting symptoms. 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 (6) Adenopathy Is this a current diagnosis for this admission?: YesSummary: Likely secondary to the above. No pathologically sized adenopathy seen on imaging or on physical exam. (7) Oral thrush Is this a current diagnosis for this admission?: YesSummary: Resolved with topical treatment. - Additional Information Resuscitation Status: Full Code Discharge Diet: Regular Discharge Activity: Slowly Increase Activity Home Medications: Acetaminophen [Tylenol 325 mg Tablet] 650 mg PO Q4HP PRN tablet 09/17/16 Albuterol Sulfate [Proair Hfa Inhalation Aerosol 8.5 gm Mdi] 1 puff IH Q4HP PRN #1 mdi 09/17/16 Azithromycin [Zithromax] 500 mg PO DAILY #14 tablet 09/17/16 Flu Vacc [id number] [id number] Up/Pf [Fluzone Adlt Quad [id number] Vac 0.5 ml Syr] 0.5 ml IM .AT DISCHARGE PRN disp.syrin 09/17/16 Hydrocodone Bit/Homatropine [Hycodan 5-1.5 mg Tablet] 1 tab PO QIDP PRN #30 tablet 09/17/16 Ipratropium/Albuterol Sulfate [Combivent Respimat 4 gm Mdi] 1 puff IH Q6 #1 aer.w.adap 09/17/16 Sodium Chloride [[place] Nasal [place] 44 ml Bottle] 1 spray NASL ACHS bottle 09/17 History of Present Illness Patient complains of: Shortness of breath History of Present Illness: NINO GRAY is a 31 year old male presents with a one-week history of worsening cough with phlegm and turn from white to hamlin but no blood in it, wheezing, worsening shortness of breath, rapid weight loss of 50 pounds in last 6 months, and bed soaking night sweats, loose stools, sore throat, fevers and chills. Hospital Course Hospital Course: He claims a 3 year history of cough productive of phlegm initially presented to his primary care provider in [facility] but was told cough was due to smoking only and he was quit further investigation was performed. He denies living in a nursing home, any incarcerations, travel overseas or known exposures to tuberculosis or any sick contacts. He denies swollen glands, difficulty urinating, abdominal pain. Denies STDs including HIV and hepatitis, denies IV drug use or recreational drug use, alcohol use. He admits to smoking only 5 cigarettes a day and never more than half a pack per day and has done so since his late teens. He reports strong family history of emphysema and many female members of his family notes they are also heavy smokers. Evaluation in the emergency department shows him to be 91% on room air with a heart rate of 130 chest x-ray showing a bilateral alveolar infiltrates consistent with pneumonia. He was given Rocephin and Zithromax and we were asked to admit for further evaluation and management. He was continued on Rocephin and Zithromax and has shown improvement with resolution of wheezing. PPD was placed evening of 09/14/2016 and interpreted by this provider as negative, there is no erythema or induration.. 3 sputum for AFB has been collected and first 2 are negative for AFB. his cough is much less productive but much more paroxysmal and irritating. He denies chest pain, palpitations, fever, chills, muscle aches and pains, night sweats. His sputum culture came back for a heavy burden of Moraxella catarrhalis as the likely explanation for his pneumonia. He was changed to only Zithromax 500 mg daily at discharge is instructed to follow-up with Dr. Ortiz, pulmonology in 1-2 weeks. At this time his hemoglobin was stable for discharge home, he is to return to the emergency department for any worsening of his condition. Follow-up with primary care provider of his choice in 2 weeks. Physical Exam Vital Signs: Temp Pulse Resp BP Pulse Ox 97.5 F 112 H 23 H 118/67 92 09/17/16 13:53 09/17/16 13:53 09/17/16 13:53 09/17/16 13:53 09/17/16 13:53 Pulse Oximeter Continuous Start: 09/14/16 16: 17 Freq: RTQ4 Status: Discharge Document 09/17/16 12:33 [facility] (Rec: 09/17/16 12:35 [facility] [email or web address]) Pulse Oximetry Assessment Oxygen Saturation (92-100) 92 Oxygen Delivery Method Room Air Fraction of Inspired Oxygen (FIO2) 21 Equipment Usage Equipment in Use Continuous SpO2 Machine # 11 Intake & Output 09/16/16 09/17/16 09/18/16 06:59 06:59 06:59 Intake Total 3229 3431 Output Total 1700 1150 Balance 1529 2281 Weight 51.2 kg 51.2 kg EXAM GENERAL: NAD; well developed, poorly nourished; no obese; alert and oriented to person, place, time, situation HEENT: normocephalic, atraumatic; no conjunctival injection, no scleral icterus ; oral mucosa thin white coat on tongue resolved; RESPIRATORY: no accessory muscle use, no increased WOB, good air entry bilaterally; no wheezes, rales, rhonchi; bilateral inspiratory crackles at the bases somewhat improved CARDIO: no JVD; RRR; no systolic murmur; no tachycardia GI: soft; nondistended; normal bowel sounds; no hepato spleno megaly; no rebound, rigidity, guarding VASCULAR: no carotid bruit; no abdominal bruit; no pallor; 2+ radial, DP pulse ; normal capillary refill EXTREMITIES: no calf tender; no palpable cords in calf; no clubbing, cyanosis , pedal edema PSYCH: normal affect, normal mood SKIN: warm; moist; no petechiae; no telengectasias; no jaundice; no rash; multiple tattoos LAD: Multiple pea-sized lymph nodes palpable in the right greater than left axilla and bilateral groin, all are mobile and nontender Results Laboratory Results: 09/17/16 03:48 09/16/16 03:40 09/15/16 09/17/16 03:55 03:48 WBC 7.4 RBC 4.14 L Hgb 12.4 L Hct 36.8 L MCV 89 MCH 30.0 MCHC 33.8 RDW 12.9 Plt Count 229 Seg Neutrophils % 54.2 Lymphocytes % 29.6 Monocytes % 11.8 Eosinophils % 3.5 Basophils % 0.9 Absolute Neutrophils 4.0 Absolute Lymphocytes 2.2 Absolute Monocytes 0.9 Absolute Eosinophils 0.3 Absolute Basophils 0.1 Transferrin 161 L 09/14/16 17:30 Sputum AFB Smear Concentration - Final 09/14/16 17:30 Sputum Acid Fast Bacilli Smear - Final 09/14/16 17:30 Sputum Gram Stain - Final 09/14/16 17:30 Sputum Sputum Culture - Final Morax.(Branhamella)Catarrhalis Normal Ariela Impressions: Abdomen/Pelvis CT 09/14/16 00:00 IMPRESSION: DIFFUSE BRONCHIECTASIS WITH MILD UPPER LOBE PARASEPTAL EMPHYSEMA. THERE IS A BROAD DIFFERENTIAL INCLUDING ALPHA 1 ANTITRYPSIN DEFICIENCY, ADULT ONSET CYSTIC FIBROSIS, ALLERGIC BRONCHOPULMONARY ASPERGILLOSIS, CHRONIC INFECTION/ INFLAMMATION INCLUDING ASTHMA, AND MIXED CONGESTION ACTIVE TISSUE DISORDERS. CORRELATE WITH PATIENT'S MEDICAL HISTORY. MILD SCATTERED TREE-IN-BUD OPACITIES SUGGESTIVE OF SUPERIMPOSED INFECTIOUS OR INFLAMMATORY PNEUMONITIS. NORMAL CT OF THE ABDOMEN AND PELVIS WITH ORAL AND INTRAVENOUS CONTRAST. Chest CT 09/14/16 00:00 IMPRESSION: DIFFUSE BRONCHIECTASIS WITH MILD UPPER LOBE PARASEPTAL EMPHYSEMA. THERE IS A BROAD DIFFERENTIAL INCLUDING ALPHA 1 ANTITRYPSIN DEFICIENCY, ADULT ONSET CYSTIC FIBROSIS, ALLERGIC BRONCHOPULMONARY ASPERGILLOSIS, CHRONIC INFECTION/ INFLAMMATION INCLUDING ASTHMA, AND MIXED CONGESTION ACTIVE TISSUE DISORDERS. CORRELATE WITH PATIENT'S MEDICAL HISTORY. MILD SCATTERED TREE-IN-BUD OPACITIES SUGGESTIVE OF SUPERIMPOSED INFECTIOUS OR INFLAMMATORY PNEUMONITIS. NORMAL CT OF THE ABDOMEN AND PELVIS WITH ORAL AND INTRAVENOUS CONTRAST. Chest X-Ray 09/14/16 13:12 IMPRESSION: Bilateral perihilar airspace disease as described. Qualifiers PATEINT BEING DISCHARGED WITH ANY OF THE FOLLOWING DIAGNOSIS?: No Plan Discharge Plan: As above Time Spent: Greater than 30 Minutes
[2016-09-18 08:44] LABS: EBV EARLY AG AB DIFFUSE Negative (Neg:<1:20)
== END 2016-09-17 14:59 | disposition home or self-care (01) | DRG 871 ==
LOC: ER 12:52 → EH 16:15 → 3N 22:40
PROVIDERS: ADMIT Internal Medicine; ATTEND Internal Medicine
PROC: 3E0F73Z Introduction of Anti-inflammatory into Respiratory Tract, Via Natural or Artificial Opening (ICD-10-PCS; 2016-09-15)
PROC: 3E0234Z Introduction of Serum, Toxoid and Vaccine into Muscle, Percutaneous Approach (ICD-10-PCS; principal; 2016-09-17)
DX: A41.9 Sepsis, unspecified organism (principal); J15.9 Unspecified bacterial pneumonia; J96.01 Acute respiratory failure with hypoxia; B37.0 Candidal stomatitis; Z23 Encounter for immunization; F17.210 Nicotine dependence, cigarettes, uncomplicated; J45.909 Unspecified asthma, uncomplicated; R63.4 Abnormal weight loss; R59.9 Enlarged lymph nodes, unspecified; R79.89 Other specified abnormal findings of blood chemistry; Z80.9 Family history of malignant neoplasm, unspecified; R61 Generalized hyperhidrosis; Z82.5 Family history of asthma and other chronic lower respiratory diseases
CPT/HCPCS: 36415; 71020; 71260; 74177; 80053; 80074; 80307; 81001; 82550; 82553; 82607; 82728; 82746; 82784; 82785; 83036; 83540; 83550; 83605; 83690; 83880; 84134; 84439; 84443; 84466; 84481; 84484; 85025; 85045; 86140; 86225; 86235; 86256; 86663; 86664; 86665; 86701; 86738; 87015; 87040; 87070; 87077; 87116; 87205; 87206; 87804; 90686; 93005; 93010; 94667; 94762; 94799; 96361; 96365; 99285; J0456; J0696; J1650; J3490; J7030; J7060; J7620

== ENCOUNTER → 2016-09-25 | Outpatient (CLI) | payer MEDICAID | LOC: OD 13:30 | PROVIDERS: ATTEND Family Medicine | DX: J18.9 Pneumonia, unspecified organism (principal) | CPT/HCPCS: 71020 ==

== ENCOUNTER → 2016-09-26 | Outpatient (CLI) | payer MEDICAID ==
[2016-09-26 16:30] LABS: ABSOLUTE BASOPHILS # (AUTO) 0.1 10^3/uL (0.0-0.2); ABSOLUTE EOSINOPHILS # (AUTO) 0.4 10^3/uL (0.0-0.6); ABSOLUTE LYMPHOCYTES (AUTO) 2.1 10^3/uL (0.5-4.7); ABSOLUTE MONOCYTES (AUTO) 0.6 10^3/uL (0.1-1.4); ABSOLUTE NEUT (AUTO) 4.9 10^3/uL (1.7-8.2); BASOPHILS % (AUTO) 0.8 % (0-2); HEMATOCRIT 42.6 % (37.9-51.0); HEMOGLOBIN 14.9 g/dL (13.5-17.0); HGB HCT DIFFERENCE 2.1; LYMPHOCYTES % (AUTO) 26.4 % (13-45); MEAN CORPUSCULAR HEMOGLOBIN 30.3 pg (27.0-33.4); MEAN CORPUSCULAR VOLUME 87 fl (80-97); RED BLOOD COUNT 4.92 10^6/uL (4.35-5.55); RED CELL DISTRIBUTION WIDTH 12.7 % (11.5-14.0); SEGMENTED NEUTROPHILS % (AUTO) 60.8 % (42-78)
[2016-09-28 08:41] LABS: IMMUNOGLOBULIN A 258 mg/dL (90-386); IMMUNOGLOBULIN G 910 mg/dL (700-1600); IMMUNOGLOBULIN M 143 mg/dL (20-172)
[2016-09-28 12:28] LABS: IMMUNOGLOBULIN E 1431 IU/mL (0-100)
[2016-09-30 06:42] LABS: E001-IGE CAT DANDER <0.10 kU/L (Class 0); E005-IGE DOG DANDER 1.51 kU/L (Class III); G002-IGE BERMUDA GRASS 0.49 kU/L (Class I); G006-IGE TIMOTHY GRASS 0.32 kU/L (Class I); G010-IGE JOHNSON GRASS 0.43 kU/L (Class I); G017-IGE BAHIA GRASS 0.39 kU/L (Class I); I100-IGE COCKROACHAMERICAN 4.07 kU/L (Class IV); M001-IGE PENICILLIUM CHRYSOGEN <0.10 kU/L (Class 0); M002-IGE CLADOSPORIUM HERBARUM <0.10 kU/L (Class 0); M003-IGE ASPERGILLUS FUMIGATUS <0.10 kU/L (Class 0); M004-IGE MUCOR RACEMOSUS 0.12 kU/L (Class 0/I); M005-IGE CANDIDA ALBICANS 0.21 kU/L (Class 0/I); M006-IGE ALTERNARIA ALTERNATA <0.10 kU/L (Class 0); M008-IGE SETOMELANOMMA ROSTRAT <0.10 kU/L (Class 0); M009-IGE FUSARIUM PROLIFERATUM <0.10 kU/L (Class 0); M010-IGE STEMPHYLIUM HERBARUM <0.10 kU/L (Class 0); M013-IGE PHOMA BETAE <0.10 kU/L (Class 0); T001-IGE MAPLE/BOX ELDER 0.23 kU/L (Class 0/I); T003-IGE BIRCH SILVER 0.11 kU/L (Class 0/I); T006-IGE CEDAR MOUNTAIN 0.25 kU/L (Class 0/I); T007-IGE OAK WHITE 0.29 kU/L (Class 0/I); T008-IGE ELM AMERICAN (WHITE 0.27 kU/L (Class 0/I); T011-IGE MAPLE LEAF SYCAMORE 0.22 kU/L (Class 0/I); T041-IGE HICKORY WHITE 0.14 kU/L (Class 0/I); T211-IGE SWEET GUM 0.14 kU/L (Class 0/I); W006-IGE MUGWORT 0.26 kU/L (Class 0/I); W009-IGE PLANTAIN ENGLISH 0.28 kU/L (Class 0/I); W014-IGE PIGWEED ROUGH 0.43 kU/L (Class I); W020-IGE NETTLE 0.32 kU/L (Class I)
[2016-09-30 10:05] LABS: M014-IGE EPICOCCUM PURPURASCEN <0.10 kU/L (Class 0)
[2016-09-30 11:37] LABS: ASPERGILLUS FLAVUS Negative (Neg:<1:1); ASPERGILLUS FUMIGATUS Negative (Neg:<1:1)
[2016-09-30 12:10] LABS: ASPERGILLUS NIGER Negative (Neg:<1:1)
[2016-10-01 16:38] LABS: ALPHA-1-ANTITRYPSIN SERUM 199 mg/dL (90-200)
== END ==
LOC: OD 15:35
PROVIDERS: ATTEND Nurse Practitioner Adult Health
DX: J47.9 Bronchiectasis, uncomplicated (principal)
CPT/HCPCS: 36415; 81332; 82103; 82104; 82784; 82785; 85025; 86003; 86606

== ENCOUNTER → 2016-10-15 | Outpatient (CLI) | payer MEDICAID | LOC: RAD 12:41 | PROVIDERS: ATTEND Nurse Practitioner Adult Health | DX: J47.9 Bronchiectasis, uncomplicated (principal); J43.9 Emphysema, unspecified; R06.00 Dyspnea, unspecified | CPT/HCPCS: 71250 ==

== ENCOUNTER 2016-12-05 08:50 | Inpatient (IN) | payer MEDICAID ==
[2016-12-05] MEDS ORDERED: ACETAMINOPHEN 325 MG TABLET PO ONE (09:09)
[2016-12-05] MEDS ORDERED: IPRATROPIUM/ALBUTEROL 0.5-2.5 MG/3 ML AMPUL NEB ONE ×2 (09:10)
[2016-12-05] MEDS ORDERED: LORAZEPAM INJ 2 MG/1 ML VIAL IV ONE ×2 (09:28→16:30)
[2016-12-05] MEDS ORDERED: LORAZEPAM INJ 2 MG/1 ML VIAL ONE ×2 (09:31→16:34)
[2016-12-05 09:45] LABS: PROTHROMBIN TIME 14.3 SEC (11.4-15.4)
[2016-12-05 09:54] LABS: ALANINE AMINOTRANSFERASE 25 U/L (21-72); ALBUMIN 4.2 g/dL (3.5-5.0); ALKALINE PHOSPHATASE 107 U/L (38-126); ANION GAP 15 (5-19); ASPARTATE AMINO TRANSFERASE 21 U/L (17-59); BILIRUBIN,DIRECT 0.7 mg/dL (0.0-0.4); BILIRUBIN,TOTAL 2.7 mg/dL (0.2-1.3); BLOOD UREA NITROGEN 13 mg/dL (7-20); CALCIUM 9.4 mg/dL (8.4-10.2); CARBON DIOXIDE 24 mmol/L (22-30); CHLORIDE 100 mmol/L (98-107); CREATININE RESULT 0.54 mg/dL (0.52-1.25); GLUCOSE 109 mg/dL (75-110); POTASSIUM 4.6 mmol/L (3.6-5.0); SODIUM 138.8 mmol/L (137-145)
[2016-12-05] MEDS ORDERED: LEVOFLOXACIN 750 MG/D5W RTU 150 ML IV ONE (10:15)
--- NOTE | 2016-12-05 10:21 | ER Document Report ---
ED General - General Chief Complaint: Shortness Of Breath Stated Complaint: SHORTNESS OF BREATH Mode of Arrival: Ambulatory Information source: Patient, DrAliyah Pang, [facility] Records Notes: 31 yr old male presents with complaints of sob, fever, difficulty breathing nonproductive cough of 2 week duration worsened today. Pt has a hx of emphysema , seen by Dr Ortiz. Pt TRAVEL OUTSIDE OF THE [place] IN LAST 30 DAYS: No - Related Data Allergies/Adverse Reactions: No Known Allergies Allergy (Verified 12/05/16 09:02) Home Medications: Current Home Medications Albuterol Sulfate [Proair HFA] 1 puff PO Q4H PRN 12/05/16 [History] Ipratropium/Albuterol Sulfate [Combivent Inhaler] 1 puff PO BID PRN 12/05/16 [ History] Levalbuterol HCl [Xopenex Neb 1.25 mg/3 ml Ampul] 1 inh NEB Q8H 12/05/16 [ History] Prednisone 20 mg PO DAILY 12/05/16 [History] Past Medical History - Social History Smoking Status: Former Smoker Chew tobacco use (# tins/day): No Drug Abuse: None Family History: None Patient has suicidal ideation: No Patient has homicidal ideation: No Pulmonary Medical History: Reports: Hx Asthma, Hx COPD Renal/ Medical History: Denies: Hx Peritoneal Dialysis Psychiatric Medical History: Reports: Hx Depression - Immunizations Hx Diphtheria, Pertussis, Tetanus Vaccination: No Physical Exam - Vital signs Vitals: Temp Pulse Resp BP Pulse Ox 100.3 F 164 H 26 H 133/78 H 86 L 12/05/16 09:05 12/05/16 09:05 12/05/16 09:05 12/05/16 09:05 12/05/16 09:05 Course - Re-evaluation Re-evalutation: 12/05/16 10:20 Spoke with radiologist with concerns of age-related infectious process versus cystic fibrosis with extensive airspace disease. Patient will be treated as pneumonia awaiting admission, primary care physician has been paged Patient meets sepsis criteria, pt on bipap 12/05/16 10:[address] noguera, requests transfer for ID 12/05/16 11:[address] graham racquet maker defers on transfer, states our res counselor can handle the patient. 12/05/16 12:07 Dr Ortiz feels patient requires thoracic surgeon for biopsy. New khoi paged 12/05/16 12:17 Dr Delgado called back, they do not have pulmonary and def Gio paged 12/05/16 12:36 Dr Avtar gruber accepts the patient but he will be 4th on the list. I will admit to dr noguera, icu in the mean time to ensure he does not decompensate in the ED - Vital Signs Vital signs: Temp Pulse Resp BP Pulse Ox 100.3 F 164 H 28 H 111/84 99 12/05/16 09:05 12/05/16 09:05 12/05/16 12:15 12/05/16 12:15 12/05/16 12:15 - Laboratory Result Diagrams: 12/05/16 10:41 12/05/16 09:25 Laboratory results interpreted by me: 12/05/16 12/05/16 09:25 10:41 WBC 3.4 L Band Neutrophils % 30 H Metamyelocytes % 2 H Total Bilirubin 2.7 H Direct Bilirubin 0.7 H - Diagnostic Test Radiology reviewed: Image reviewed, Reports reviewed - EKG Interpretation by Me EKG shows normal: Sinus rhythm, [place], Intervals, QRS Complexes Critical Care Note - Critical Care Note Total time excluding time spent on procedures (mins): 55 Comments: minutes of critical care time spent in direct contact evaluating and reevaluating the patient, treating symptoms, reviewing labs and studies and speaking with family and consultants excluding any procedures Discharge - Discharge Clinical Impression: Tachycardia, Hypoxemia Sepsis Qualifiers: Sepsis type: sepsis due to unspecified organism Qualified Code(s): A41.9 - Sepsis, unspecified organism Respiratory failure Qualifiers: Chronicity: acute Respiratory failure complication: hypoxia Qualified Code(s): J96.01 - Acute respiratory failure with hypoxia Condition: Critical Disposition: ADMITTED INPATIENT Admitting Provider: Mateo Unit Admitted: ICU Referrals: JOSE JUAN NOGUERA MD [Primary Care Provider] - Follow up as needed
[2016-12-05 10:52] LABS: HEMOGLOBIN 13.8 g/dL (13.5-17.0); HGB HCT DIFFERENCE 2.4; MEAN CORPUSCULAR HEMOGLOBIN 31.5 pg (27.0-33.4); MEAN CORPUSCULAR HGB CONC 35.5 g/dL (32.0-36.0); MEAN CORPUSCULAR VOLUME 89 fl (80-97); RED CELL DISTRIBUTION WIDTH 13.9 % (11.5-14.0); WHITE BLOOD COUNT 3.4 10^3/uL (4.0-10.5)
[2016-12-05 11:03] LABS: VENOUS BLOOD BASE EXCESS -4.4 mmol/L; VENOUS BLOOD HCO3 21.3 mmol/L (20-32); VENOUS BLOOD PCO2 41.6 mmHg (35-63); VENOUS BLOOD PH 7.33 (7.30-7.42)
[2016-12-05 11:32] LABS: ADD HIVPANEL? NO; HIV (1 AND 2) ANTIBODY NEGATIVE (NEGATIVE)
[2016-12-05] MEDS: NORMAL SALINE 1000 ML 1,000 ML IV PRN ×3 (11:32→12:33)
[2016-12-05 11:35] LABS: BASOPHILS % (MANUAL) 0 % (0-2); EOSINOPHILS % (MANUAL) 0 % (0-6); NUCLEATED RED BLOOD CELLS 1 /100 WBC (0); TOTAL CELLS COUNTED 100
[2016-12-05 12:05] LABS: LYMPHOCYTES % (MANUAL) 13 % (13-45); TOXIC GRANULATION 1+; TOXIC VACUOLATION PRESENT
[2016-12-05 12:08] LABS: POLYCHROMASIA SLIGHT
[2016-12-05 12:09] LABS: BAND NEUTROPHILS % (MANUAL) 30 % (3-5)
[2016-12-05] MEDS ORDERED: NORMAL SALINE 1000 ML 1,000 ML IV PRN ×2 (12:15→13:26)
[2016-12-05] MEDS ORDERED: KETOROLAC TROMETHAMINE INJ/PF 30 MG/1 ML SDV IV ONE (12:57)
[2016-12-05] MEDS ORDERED: VANCOMYCIN HCL INJ 1000 MG VIAL IV ONE (13:14)
[2016-12-05] MEDS ORDERED: ACETAMINOPHEN 325 MG TABLET PO PRN (13:26)
[2016-12-05] MEDS ORDERED: VANCOMYCIN HCL 0 MG in DEXTROSE 5%-WATER 250 ML IV NR (13:45)
[2016-12-05] MEDS ORDERED: CEFEPIME HCL 1 GM in DEXTROSE 5%-WATER 50 ML IV ONE (14:15)
[2016-12-05] MEDS ORDERED: CEFEPIME 1 GM/D5W RTU 1 GM/50 ML RTUPB IV ONE (14:30)
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
[2016-12-05] MEDS ORDERED: VANCOMYCIN HCL 1,250 MG in DEXTROSE 5%-WATER 250 ML IV ONE (15:00)
[2016-12-05] MEDS ORDERED: LEVALBUTEROL HCL NEB 1.25 MG/3 ML AMPUL NEB SCH (16:00)
[2016-12-05 16:38] VITALS: BP 106/71
--- NOTE | 2016-12-05 20:03 | EKG REPORT ---
SEVERITY:- ABNORMAL ECG - ECTOPIC ATRIAL TACHYCARDIA LVH WITH IVCD AND SECONDARY REPOL ABNRM ANTEROLATERAL Q WAVES, PROBABLY DUE TO LVH ST DEPRESSION, CONSIDER ISCHEMIA, INF LEADS : Confirmed by: Jazmyne Quijano MD 05-Dec-2016 20:02:24
[2016-12-05] MEDS ORDERED: FAMOTIDINE 20 MG TABLET PO SCH (22:00)
[2016-12-06] MEDS ORDERED: CEFEPIME 1 GM/D5W RTU 1 GM/50 ML RTUPB IV SCH
[2016-12-06] MEDS ORDERED: ENOXAPARIN SODIUM INJ 40 MG/0.4 ML DISP.SYRIN SUBCUT SCH (08:00)
[2016-12-06] MEDS ORDERED: LEVOFLOXACIN 750 MG/D5W RTU 750 MG/150 ML RTUPB IV SCH (10:00)
[2016-12-06 20:43] LABS: PATH REVIEW PATHOLOGIST REVIEWED
== END 2016-12-05 16:37 | disposition short-term general hospital (02) | DRG 871 ==
LOC: ER 08:50 → EH 15:32
PROVIDERS: ADMIT Family Medicine; ATTEND Family Medicine
PROC: 3E0234Z Introduction of Serum, Toxoid and Vaccine into Muscle, Percutaneous Approach (ICD-10-PCS; principal; 2016-12-05)
DX: A41.9 Sepsis, unspecified organism (principal); J96.01 Acute respiratory failure with hypoxia; J18.9 Pneumonia, unspecified organism; J47.0 Bronchiectasis with acute lower respiratory infection; R65.20 Severe sepsis without septic shock; E88.01 Alpha-1-antitrypsin deficiency; E86.0 Dehydration; J44.9 Chronic obstructive pulmonary disease, unspecified; R63.4 Abnormal weight loss; J45.909 Unspecified asthma, uncomplicated; Z87.891 Personal history of nicotine dependence; Z23 Encounter for immunization
CPT/HCPCS: 36415; 71010; 71275; 80053; 82803; 82962; 83605; 85025; 85610; 86701; 87040; 87804; 93005; 93010; 94640; 94660; 96361; 96365; 96366; 96367; 96368; 96375; 99291; J0692; J1885; J1956; J2060; J3370; J7030; J7060; J7620